=== PATIENT | female | born 1935 | race Caucasian/White ===

== ENCOUNTER 2017-09-04 17:08 | Inpatient (IN) | payer MEDICARE, BC ==
[2017-09-04] MEDS ORDERED: Sodium Chloride 0.9% 10 ML Syringe FLUSH PRN (17:23)
[2017-09-04] MEDS ORDERED: Sodium Chloride 0.9% 2.5 ML Syringe FLUSH PRN (17:23)
--- NOTE | 2017-09-04 17:26 | EDM.PDOC ---
ED HPI GENERAL MEDICAL PROBLEM - General Chief Complaint: Respiratory Problem Stated Complaint: SHORTNESS OF BREATH Time Seen by Provider: 09/04/17 17:19 - History of Present Illness INITIAL COMMENTS - FREE TEXT/NARRATIVE: HISTORY AND PHYSICAL: History of present illness: Patient's an 82-year-old female who presents with term generalized weakness mild shortness of breath who did finish a 10 day course of antibiotics for a clinical pneumonia her last dose of antibiotics was last Tuesday per family she denies vomiting diarrhea she denies chest pain or abdominal pain she is slightly vague regarding her symptoms but is clear that it is generalized weakness with some mild shortness of breath. Review of systems: As per history of present illness and below otherwise all systems reviewed and negative. Past medical history: As per history of present illness and as reviewed below otherwise noncontributory. Surgical history: As per history of present illness and as reviewed below otherwise noncontributory. Social history: No reported history of drug or alcohol abuse. Family history: As per history of present illness and as reviewed below otherwise noncontributory. Physical exam: HEENT: Atraumatic, normocephalic, pupils reactive, negative for conjunctival pallor or scleral icterus, mucous membranes dry, throat clear, neck supple, nontender, trachea midline. Lungs: Slightly coarse diminished, breath sounds equal bilaterally, chest nontender. Heart: S1S2, regular, negative for clicks, rubs, or JVD. Abdomen: Soft, nondistended, nontender. Negative for masses or hepatosplenomegaly. Negative for costovertebral tenderness. Pelvis: Stable nontender. Genitourinary: Deferred. Rectal: Deferred. Extremities: Atraumatic, negative for cords or calf pain. Neurovascular unremarkable. Neuro: Awake, alert, oriented. Cranial nerves II through XII unremarkable. Cerebellum unremarkable. Motor and sensory unremarkable throughout. Exam nonfocal. Diagnostics: CBC CMP ABG troponin PT/INR chest x-ray EKG UA urine culture blood culture 2 influenza screen lactic acid Therapeutics: Saline 500 cc bolus Impression: #1Generalized weakness #2 dehydration Definitive disposition and diagnosis as appropriate pending reevaluation and review of above. - Related Data Allergies Allergy/AdvReac Type Severity Reaction Status Date / Time No Known Allergies Allergy Verified 09/04/17 17:33 Home Meds: Home Meds Simvastatin [Zocor] 40 mg PO BEDTIME 03/19/14 [History] metFORMIN HCl [Metformin HCl ER] 500 mg PO DAILY 03/19/14 [History] Lisinopril 5 mg PO DAILY 05/23/16 [History] Metoprolol Succinate [Toprol XL] 50 mg PO DAILY 05/23/16 [History] Past Medical History HEENT History: Reports: Impaired Vision Cardiovascular History: Reports: High Cholesterol, Hypertension, Stents Respiratory History: Reports: None Gastrointestinal History: Reports: None Genitourinary History: Reports: None 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: Musculoskeletal History: Reports: None Neurological History: Reports: None Psychiatric History: Reports: None Endocrine/Metabolic History: Reports: Diabetes, Type II Hematologic History: Reports: None Immunologic History: Reports: None Oncologic (Cancer) History: Reports: None - Infectious Disease History Infectious Disease History: Reports: Chicken Pox, Measles, Mumps - Past Surgical History Cardiovascular Surgical History: Reports: Coronary Artery Stent, Other (See Below) Social & Family History - Family History Family Medical History: Noncontributory - Tobacco Use Smoking Status *Q: Never Smoker Second Hand Smoke Exposure: No - Alcohol Use Days Per Week of Alcohol Use: 0 - Recreational Drug Use Recreational Drug Use: No - Living Situation & Occupation Living situation: Reports: , with Family Occupation: Retired ED ROS GENERAL - Review of Systems Review Of Systems: ROS reveals no pertinent complaints other than HPI. ED EXAM, GENERAL - Physical Exam Exam: See Below (Dictation) Course - Vital Signs Last Recorded V/S: Last Vital Signs Temp 37.0 C 09/04/17 17:10 Pulse 87 09/04/17 17:10 Resp 20 09/04/17 17:10 BP 184/84 H 09/04/17 17:10 Pulse Ox 96 09/04/17 17:22 - Orders/Labs/Meds Orders: Active Orders 24 hr Category Date Time Status Patient Status [ADT] Stat ADT 09/04/17 18:49 Active Cardiac Monitoring [RC] . DIRECTED Care 09/04/17 17:22 Active EKG 12 Lead [EKG Documentation Completion] [RC] STAT Care 09/04/17 17:15 Active EKG Documentation Completion [RC] STAT Care 09/04/17 17:22 Active Oxygen Therapy, ED [RC] ASDIRECTED Care 09/04/17 17:22 Active Pulse Oximetry [RC] ASDIRECTED Care 09/04/17 17:23 Active Chest 2V [CR] Stat Exams 09/04/17 17:23 Taken CULTURE BLOOD [BC] Stat Lab 09/04/17 17:38 Received CULTURE BLOOD [BC] Stat Lab 09/04/17 17:43 Received CULTURE URINE [RM] Stat Lab 09/04/17 17:23 Ordered INFLUENZA A+B AG SCREEN [RM] Stat Lab 09/04/17 17:56 Ordered UA W/MICROSCOPIC [URIN] Stat Lab 09/04/17 17:23 Ordered Levofloxacin/Dextrose 5%-Water [Levaquin in D5W 750 MG/ Med 09/04/17 18:48 Active 150 ML] 750 mg Premix Bag 1 bag IV ONETIME Sodium Chloride 0.9% [Normal Saline] 500 ml Med 09/04/17 17:30 Active IV STAT Sodium Chloride 0.9% [Saline Flush] Med 09/04/17 17:23 Active 10 ml FLUSH ASDIRECTED PRN Sodium Chloride 0.9% [Saline Flush] Med 09/04/17 17:23 Active 2.5 ml FLUSH ASDIRECTED PRN Blood Culture x2 Reflex Set [OM.PC] Stat Oth 09/04/17 17:23 Ordered Saline Lock Insert [OM.PC] Stat Oth 09/04/17 17:22 Ordered Medication Orders Sodium Chloride (Normal Saline) 500 mls @ 999 mls/hr IV STAT [facility] Last Admin: 09/04/17 17:53 Dose: 999 mls/hr Levofloxacin/Dextrose 750 mg/ (Premix) 150 mls @ 100 mls/hr IV ONETIME ONE Stop: 09/04/17 20:17 Sodium Chloride (Saline Flush) 10 ml FLUSH ASDIRECTED PRN PRN Reason: Keep Vein Open Sodium Chloride (Saline Flush) 2.5 ml FLUSH ASDIRECTED PRN PRN Reason: Keep Vein Open Labs: Laboratory Tests 09/04/17 09/04/17 09/04/17 Range/Units 17:43 17:43 17:43 WBC 7.28 (4.0-11.0) K/uL RBC 4.23 L (4.30-5.90) M/uL Hgb 12.9 (12.0-16.0) g/dL Hct 40.3 (36.0-46.0) % MCV 95.3 (80.0-98.0) fL MCH 30.5 (27.0-32.0) pg MCHC 32.0 (31.0-37.0) g/dL RDW Std Deviation 45.0 (28.0-62.0) fl RDW Coeff of Sukhdeep 13 (11.0-15.0) % Plt Count 529 H (150-400) K/uL MPV 10.60 (7.40-12.00) fL Neut % (Auto) 75.0 (48.0-80.0) % Lymph % (Auto) 16.6 (16.0-40.0) % [place] % (Auto) 7.0 (0.0-15.0) % Eos % (Auto) 1.1 (0.0-7.0) % Baso % (Auto) 0.3 (0.0-1.5) % Neut # (Auto) 5.5 (1.4-5.7) K/uL Lymph # (Auto) 1.2 (0.6-2.4) K/uL [place] # (Auto) 0.5 (0.0-0.8) K/uL Eos # (Auto) 0.1 (0.0-0.7) K/uL Baso # (Auto) 0.0 (0.0-0.1) K/uL Nucleated RBC % 0.0 /100WBC Nucleated RBCs # 0 K/uL INR 1.01 ABG pH (7.35-7.45) ABG pCO2 (35-45) mmHG ABG pO2 (75-100) mmHG ABG HCO3 (22-26) mEq/L ABG Total CO2 ABG Base Excess (-2.0-2.0) Lactate (0.20-2.00) mmol/L Sodium 143 (136-145) mmol/L Potassium 3.8 (3.5-5.1) mmol/L Chloride 107 (98-107) mmol/L Carbon Dioxide 26.9 (21.0-32.0) mmol/L BUN 7 (7.0-18.0) mg/dL Creatinine 1.1 H (0.6-1.0) mg/dL Est Cr Clr Drug Dosing 33.03 mL/min Estimated GFR (MDRD) 47.4 ml/min Glucose 109 H (74-106) mg/dL Calcium 8.7 (8.5-10.1) mg/dL Total Bilirubin 0.2 (0.2-1.0) mg/dL AST 22 (15-37) IU/L ALT 36 (14-63) IU/L Alkaline Phosphatase 139 H (46-116) U/L Troponin I < 0.050 (0.000-0.056) ng/mL B-Natriuretic Peptide (<100) PG/ML Total Protein 6.0 L (6.4-8.2) g/dL Albumin 2.7 L (3.4-5.0) g/dL Globulin 3.3 (2.0-3.5) g/dL Albumin/Globulin Ratio 0.8 L (1.3-2.8) 09/04/17 09/04/17 Range/Units 17:43 17:52 WBC (4.0-11.0) K/uL RBC (4.30-5.90) M/uL Hgb (12.0-16.0) g/dL Hct (36.0-46.0) % MCV (80.0-98.0) fL MCH (27.0-32.0) pg MCHC (31.0-37.0) g/dL RDW Std Deviation (28.0-62.0) fl RDW Coeff of Sukhdeep (11.0-15.0) % Plt Count (150-400) K/uL MPV (7.40-12.00) fL Neut % (Auto) (48.0-80.0) % Lymph % (Auto) (16.0-40.0) % [place] % (Auto) (0.0-15.0) % Eos % (Auto) (0.0-7.0) % Baso % (Auto) (0.0-1.5) % Neut # (Auto) (1.4-5.7) K/uL Lymph # (Auto) (0.6-2.4) K/uL [place] # (Auto) (0.0-0.8) K/uL Eos # (Auto) (0.0-0.7) K/uL Baso # (Auto) (0.0-0.1) K/uL Nucleated RBC % /100WBC Nucleated RBCs # K/uL INR ABG pH 7.467 H (7.35-7.45) ABG pCO2 38 (35-45) mmHG ABG pO2 66 L (75-100) mmHG ABG HCO3 27 H (22-26) mEq/L ABG Total CO2 24.7 ABG Base Excess 3.6 H (-2.0-2.0) Lactate 1.0 (0.20-2.00) mmol/L Sodium (136-145) mmol/L Potassium (3.5-5.1) mmol/L Chloride (98-107) mmol/L Carbon Dioxide (21.0-32.0) mmol/L BUN (7.0-18.0) mg/dL Creatinine (0.6-1.0) mg/dL Est Cr Clr Drug Dosing mL/min Estimated GFR (MDRD) ml/min Glucose (74-106) mg/dL Calcium (8.5-10.1) mg/dL Total Bilirubin (0.2-1.0) mg/dL AST (15-37) IU/L ALT (14-63) IU/L Alkaline Phosphatase (46-116) U/L Troponin I (0.000-0.056) ng/mL B-Natriuretic Peptide 174 H (<100) PG/ML Total Protein (6.4-8.2) g/dL Albumin (3.4-5.0) g/dL Globulin (2.0-3.5) g/dL Albumin/Globulin Ratio (1.3-2.8) Meds: Medications Generic Name Dose Route Start Last Admin Trade Name Freq PRN Reason Stop Dose Admin Sodium Chloride 500 mls @ 999 mls/hr 09/04/17 17:30 09/04/17 17:53 Normal Saline IV 999 mls/hr STAT AMINAH Administration Levofloxacin/Dextrose 750 mg/ 150 mls @ 100 mls/hr 09/04/17 18:48 Premix IV 09/04/17 20:17 ONETIME ONE Sodium Chloride 10 ml 09/04/17 17:23 Saline Flush FLUSH ASDIRECTED PRN Keep Vein Open Sodium Chloride 2.5 ml 09/04/17 17:23 Saline Flush FLUSH ASDIRECTED PRN Keep Vein Open Departure - Departure Time of Disposition: 18:57 Disposition: Admitted As Inpatient 65 Condition: Good Clinical Impression: Pneumonia, Weakness - Discharge Information Referrals: Jorge Tyson MD [Primary Care Provider] - Forms: ED Department Discharge - My Orders Last 24 Hours: My Active Orders 09/04/17 17:15 EKG 12 Lead [EKG Documentation Completion] [RC] STAT 09/04/17 17:22 Cardiac Monitoring [RC] . DIRECTED EKG Documentation Completion [RC] STAT Oxygen Therapy, ED [RC] ASDIRECTED Saline Lock Insert [OM.PC] Stat 09/04/17 17:23 Pulse Oximetry [RC] ASDIRECTED Chest 2V [CR] Stat CULTURE URINE [RM] Stat UA W/MICROSCOPIC [URIN] Stat Sodium Chloride 0.9% [Saline Flush] 10 ml FLUSH ASDIRECTED PRN Sodium Chloride 0.9% [Saline Flush] 2.5 ml FLUSH ASDIRECTED PRN Blood Culture x2 Reflex Set [OM.PC] Stat 09/04/17 17:30 Sodium Chloride 0.9% [Normal Saline] 500 ml IV STAT 09/04/17 17:38 CULTURE BLOOD [BC] Stat 09/04/17 17:43 CULTURE BLOOD [BC] Stat 09/04/17 17:56 INFLUENZA A+B AG SCREEN [RM] Stat 09/04/17 18:48 Levofloxacin/Dextrose 5%-Water [Levaquin in D5W 750 MG/150 ML] 750 mg Premix Bag 1 bag IV ONETIME 09/04/17 18:49 Patient Status [ADT] Stat - Assessment/Plan Last 24 Hours: My Active Orders 09/04/17 17:15 EKG 12 Lead [EKG Documentation Completion] [RC] STAT 09/04/17 17:22 Cardiac Monitoring [RC] . DIRECTED EKG Documentation Completion [RC] STAT Oxygen Therapy, ED [RC] ASDIRECTED Saline Lock Insert [OM.PC] Stat 09/04/17 17:23 Pulse Oximetry [RC] ASDIRECTED Chest 2V [CR] Stat CULTURE URINE [RM] Stat UA W/MICROSCOPIC [URIN] Stat Sodium Chloride 0.9% [Saline Flush] 10 ml FLUSH ASDIRECTED PRN Sodium Chloride 0.9% [Saline Flush] 2.5 ml FLUSH ASDIRECTED PRN Blood Culture x2 Reflex Set [OM.PC] Stat 09/04/17 17:30 Sodium Chloride 0.9% [Normal Saline] 500 ml IV STAT 09/04/17 17:38 CULTURE BLOOD [BC] Stat 09/04/17 17:43 CULTURE BLOOD [BC] Stat 09/04/17 17:56 INFLUENZA A+B AG SCREEN [RM] Stat 09/04/17 18:48 Levofloxacin/Dextrose 5%-Water [Levaquin in D5W 750 MG/150 ML] 750 mg Premix Bag 1 bag IV ONETIME 09/04/17 18:49 Patient Status [ADT] Stat
[2017-09-04] MEDS ORDERED: Sodium Chloride 0.9% 500 ML IV SCH (17:30)
[2017-09-04 18:26] LABS: CHLORIDE,CL 107 mmol/L (98-107); SODIUM,NA 143 mmol/L (136-145)
[2017-09-04] MEDS ORDERED: Levofloxacin/Dextrose 5%-Water 750 MG in Premix Bag 1 BAG IV ONE (18:48)
--- NOTE | 2017-09-04 22:05 | PCM.HP ---
H&P History of Present Illness - General Admit Problem/Dx: Admission Diagnosis/Problem Admission Diagnosis/Problem Pneumonia - History of Present Illness Initial Comments - Free Text/Narative: 82 yo female who was treated with cefdinir for ten days for a pneumonia. She presents to the ED today with complaints of generalized weakness. She reports cough but no fevers, chills, or chest pain. - Related Data Allergies/Adverse Reactions: Allergies Allergy/AdvReac Type Severity Reaction Status Date / Time No Known Allergies Allergy Verified 09/04/17 17:33 Home Medications: Home Meds Simvastatin [Zocor] 40 mg PO BEDTIME 03/19/14 [History] metFORMIN HCl [Metformin HCl ER] 500 mg PO DAILY 03/19/14 [History] Lisinopril 5 mg PO DAILY 05/23/16 [History] Metoprolol Succinate [Toprol XL] 50 mg PO DAILY 05/23/16 [History] Past Medical History HEENT History: Reports: Impaired Vision Cardiovascular History: Reports: High Cholesterol, Hypertension, Stents Respiratory History: Reports: None Gastrointestinal History: Reports: None Genitourinary History: Reports: None 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: Musculoskeletal History: Reports: None Neurological History: Reports: None Psychiatric History: Reports: None Endocrine/Metabolic History: Reports: Diabetes, Type II Hematologic History: Reports: None Immunologic History: Reports: None Oncologic (Cancer) History: Reports: None - Infectious Disease History Infectious Disease History: Reports: Chicken Pox, Measles, Mumps - Past Surgical History Cardiovascular Surgical History: Reports: Coronary Artery Stent, Other (See Below) Dermatological Surgical History: Reports: None Social & Family History - Family History Family Medical History: Noncontributory - Tobacco Use Smoking Status *Q: Never Smoker Second Hand Smoke Exposure: No - Caffeine Use Caffeine Use: Reports: Coffee - Alcohol Use Days Per Week of Alcohol Use: 0 - Recreational Drug Use Recreational Drug Use: No - Living Situation & Occupation Living situation: Reports: , with Family Occupation: Retired H&P Review of Systems - Review of Systems: Review Of Systems: ROS reveals no pertinent complaints other than HPI. Exam - Exam Exam: See Below - Vital Signs Vital Signs: Last Vital Signs Temp 37.0 C 09/04/17 17:10 Pulse 75 09/04/17 19:18 Resp 17 09/04/17 19:18 BP 181/88 H 09/04/17 19:18 Pulse Ox 95 09/04/17 19:18 Weight: 54.975 kg - Exam General: Alert, Oriented HEENT: Mucosa Moist & [place] Lungs: Clear to Auscultation, Normal Respiratory Effort Cardiovascular: Regular Rate, Regular Rhythm GI/Abdominal Exam: Soft, Non-Tender Extremities: Non-Tender, No Pedal Edema Skin: Warm, Dry, Intact Neurological: No: Focal Deficit - Patient Data Lab Results Last 24 hrs: Laboratory Results - last 24 hr 09/04/17 09/04/17 09/04/17 Range/Units 17:43 17:43 17:43 WBC 7.28 (4.0-11.0) K/uL RBC 4.23 L (4.30-5.90) M/uL Hgb 12.9 (12.0-16.0) g/dL Hct 40.3 (36.0-46.0) % MCV 95.3 (80.0-98.0) fL MCH 30.5 (27.0-32.0) pg MCHC 32.0 (31.0-37.0) g/dL RDW Std Deviation 45.0 (28.0-62.0) fl RDW Coeff of Sukhdeep 13 (11.0-15.0) % Plt Count 529 H (150-400) K/uL MPV 10.60 (7.40-12.00) fL Neut % (Auto) 75.0 (48.0-80.0) % Lymph % (Auto) 16.6 (16.0-40.0) % [place] % (Auto) 7.0 (0.0-15.0) % Eos % (Auto) 1.1 (0.0-7.0) % Baso % (Auto) 0.3 (0.0-1.5) % Neut # (Auto) 5.5 (1.4-5.7) K/uL Lymph # (Auto) 1.2 (0.6-2.4) K/uL [place] # (Auto) 0.5 (0.0-0.8) K/uL Eos # (Auto) 0.1 (0.0-0.7) K/uL Baso # (Auto) 0.0 (0.0-0.1) K/uL Nucleated RBC % 0.0 /100WBC Nucleated RBCs # 0 K/uL INR 1.01 ABG pH (7.35-7.45) ABG pCO2 (35-45) mmHG ABG pO2 (75-100) mmHG ABG HCO3 (22-26) mEq/L ABG Total CO2 ABG Base Excess (-2.0-2.0) Lactate (0.20-2.00) mmol/L Sodium 143 (136-145) mmol/L Potassium 3.8 (3.5-5.1) mmol/L Chloride 107 (98-107) mmol/L Carbon Dioxide 26.9 (21.0-32.0) mmol/L BUN 7 (7.0-18.0) mg/dL Creatinine 1.1 H (0.6-1.0) mg/dL Est Cr Clr Drug Dosing 33.03 mL/min Estimated GFR (MDRD) 47.4 ml/min Glucose 109 H (74-106) mg/dL Calcium 8.7 (8.5-10.1) mg/dL Total Bilirubin 0.2 (0.2-1.0) mg/dL AST 22 (15-37) IU/L ALT 36 (14-63) IU/L Alkaline Phosphatase 139 H (46-116) U/L Troponin I < 0.050 (0.000-0.056) ng/mL B-Natriuretic Peptide (<100) PG/ML Total Protein 6.0 L (6.4-8.2) g/dL Albumin 2.7 L (3.4-5.0) g/dL Globulin 3.3 (2.0-3.5) g/dL Albumin/Globulin Ratio 0.8 L (1.3-2.8) Urine Color Urine Appearance Urine pH (5.0-8.0) Ur Specific [place] (1.001-1.035) Urine Protein (NEGATIVE) mg/dL Urine Glucose (UA) (NEGATIVE) mg/dL Urine Ketones (NEGATIVE) mg/dL Urine Occult Blood (NEGATIVE) Urine Nitrite (NEGATIVE) Urine Bilirubin (NEGATIVE) Urine Urobilinogen (<2.0) EU/dL Ur Leukocyte Esterase (NEGATIVE) 09/04/17 09/04/17 09/04/17 Range/Units 17:43 17:52 18:52 WBC (4.0-11.0) K/uL RBC (4.30-5.90) M/uL Hgb (12.0-16.0) g/dL Hct (36.0-46.0) % MCV (80.0-98.0) fL MCH (27.0-32.0) pg MCHC (31.0-37.0) g/dL RDW Std Deviation (28.0-62.0) fl RDW Coeff of Sukhdeep (11.0-15.0) % Plt Count (150-400) K/uL MPV (7.40-12.00) fL Neut % (Auto) (48.0-80.0) % Lymph % (Auto) (16.0-40.0) % [place] % (Auto) (0.0-15.0) % Eos % (Auto) (0.0-7.0) % Baso % (Auto) (0.0-1.5) % Neut # (Auto) (1.4-5.7) K/uL Lymph # (Auto) (0.6-2.4) K/uL [place] # (Auto) (0.0-0.8) K/uL Eos # (Auto) (0.0-0.7) K/uL Baso # (Auto) (0.0-0.1) K/uL Nucleated RBC % /100WBC Nucleated RBCs # K/uL INR ABG pH 7.467 H (7.35-7.45) ABG pCO2 38 (35-45) mmHG ABG pO2 66 L (75-100) mmHG ABG HCO3 27 H (22-26) mEq/L ABG Total CO2 24.7 ABG Base Excess 3.6 H (-2.0-2.0) Lactate 1.0 (0.20-2.00) mmol/L Sodium (136-145) mmol/L Potassium (3.5-5.1) mmol/L Chloride (98-107) mmol/L Carbon Dioxide (21.0-32.0) mmol/L BUN (7.0-18.0) mg/dL Creatinine (0.6-1.0) mg/dL Est Cr Clr Drug Dosing mL/min Estimated GFR (MDRD) ml/min Glucose (74-106) mg/dL Calcium (8.5-10.1) mg/dL Total Bilirubin (0.2-1.0) mg/dL AST (15-37) IU/L ALT (14-63) IU/L Alkaline Phosphatase (46-116) U/L Troponin I (0.000-0.056) ng/mL B-Natriuretic Peptide 174 H (<100) PG/ML Total Protein (6.4-8.2) g/dL Albumin (3.4-5.0) g/dL Globulin (2.0-3.5) g/dL Albumin/Globulin Ratio (1.3-2.8) Urine Color YELLOW Urine Appearance HAZY Urine pH 6.0 (5.0-8.0) Ur Specific [place] <= 1.005 (1.001-1.035) Urine Protein NEGATIVE (NEGATIVE) mg/dL Urine Glucose (UA) NEGATIVE (NEGATIVE) mg/dL Urine Ketones NEGATIVE (NEGATIVE) mg/dL Urine Occult Blood NEGATIVE (NEGATIVE) Urine Nitrite NEGATIVE (NEGATIVE) Urine Bilirubin NEGATIVE (NEGATIVE) Urine Urobilinogen 0.2 (<2.0) EU/dL Ur Leukocyte Esterase MODERATE (NEGATIVE) Result Diagrams: 09/05/17 05:44 09/05/17 05:44 Jose Results Last 24 hrs: Microbiology 09/04/17 17:56 Influenza Type A Antigen Screen - Final Nasopharyngeal Swab NEGATIVE INFLUENZA A VIRUS AG Influenza Type B Antigen Screen - Final NEGATIVE INFLUENZA B VIRUS AG Problem List Initiated/Reviewed/Updated: Yes Orders Last 24hrs: Active Orders 24 hr Category Date Time Status Patient Status [ADT] Stat ADT 09/04/17 18:49 Active Cardiac Monitoring [RC] . DIRECTED Care 09/04/17 17:22 Active EKG 12 Lead [EKG Documentation Completion] [RC] STAT Care 09/04/17 17:15 Active EKG Documentation Completion [RC] STAT Care 09/04/17 17:22 Active Oxygen Therapy, ED [RC] ASDIRECTED Care 09/04/17 17:22 Active Pulse Oximetry [RC] ASDIRECTED Care 09/04/17 17:23 Active Chest 2V [CR] Stat Exams 09/04/17 17:23 Taken CULTURE BLOOD [BC] Stat Lab 09/04/17 17:38 Received CULTURE BLOOD [BC] Stat Lab 09/04/17 17:43 Received CULTURE URINE [RM] Stat Lab 09/04/17 18:52 Ordered INFLUENZA A+B AG SCREEN [RM] Stat Lab 09/04/17 17:56 Ordered UA W/MICROSCOPIC [URIN] Stat Lab 09/04/17 18:52 Ordered Sodium Chloride 0.9% [Normal Saline] 500 ml Med 09/04/17 17:30 Active IV STAT Sodium Chloride 0.9% [Saline Flush] Med 09/04/17 17:23 Active 10 ml FLUSH ASDIRECTED PRN Sodium Chloride 0.9% [Saline Flush] Med 09/04/17 17:23 Active 2.5 ml FLUSH ASDIRECTED PRN Blood Culture x2 Reflex Set [OM.PC] Stat Oth 09/04/17 17:23 Ordered Saline Lock Insert [OM.PC] Stat Oth 09/04/17 17:22 Ordered Medication Orders Sodium Chloride (Normal Saline) 500 mls @ 999 mls/hr IV STAT AMINAH Last Admin: 09/04/17 17:53 Dose: 999 mls/hr Sodium Chloride (Saline Flush) 10 ml FLUSH ASDIRECTED PRN PRN Reason: Keep Vein Open Sodium Chloride (Saline Flush) 2.5 ml FLUSH ASDIRECTED PRN PRN Reason: Keep Vein Open Assessment/Plan Comment:: 82 yo female admitted with pneumonia. We will treat with Levaquin
--- NOTE | 2017-09-05 09:03 | PCM.PN ---
- Review of Systems Systems Review Comment:: feeling better, feels unsteady on her feet. - Patient Data Vitals - Most Recent: Last Vital Signs Temp 36.5 C 09/05/17 08:00 Pulse 78 09/05/17 08:00 Resp 18 09/05/17 08:00 BP 148/73 H 09/05/17 08:00 Pulse Ox 92 L 09/05/17 08:00 Weight - Most Recent: 54.975 kg I&O - Last 24 Hours: Intake & Output 09/04/17 09/05/17 09/05/17 22:59 06:59 14:59 Intake Total 520 Output Total 1400 Balance -880 Lab Results Last 24 Hours: Laboratory Results - last 24 hr 09/04/17 09/04/17 09/04/17 Range/Units 17:43 17:43 17:43 WBC 7.28 (4.0-11.0) K/uL RBC 4.23 L (4.30-5.90) M/uL Hgb 12.9 (12.0-16.0) g/dL Hct 40.3 (36.0-46.0) % MCV 95.3 (80.0-98.0) fL MCH 30.5 (27.0-32.0) pg MCHC 32.0 (31.0-37.0) g/dL RDW Std Deviation 45.0 (28.0-62.0) fl RDW Coeff of Sukhdeep 13 (11.0-15.0) % Plt Count 529 H (150-400) K/uL MPV 10.60 (7.40-12.00) fL Neut % (Auto) 75.0 (48.0-80.0) % Lymph % (Auto) 16.6 (16.0-40.0) % [place] % (Auto) 7.0 (0.0-15.0) % Eos % (Auto) 1.1 (0.0-7.0) % Baso % (Auto) 0.3 (0.0-1.5) % Neut # (Auto) 5.5 (1.4-5.7) K/uL Lymph # (Auto) 1.2 (0.6-2.4) K/uL [place] # (Auto) 0.5 (0.0-0.8) K/uL Eos # (Auto) 0.1 (0.0-0.7) K/uL Baso # (Auto) 0.0 (0.0-0.1) K/uL Nucleated RBC % 0.0 /100WBC Nucleated RBCs # 0 K/uL INR 1.01 ABG pH (7.35-7.45) ABG pCO2 (35-45) mmHG ABG pO2 (75-100) mmHG ABG HCO3 (22-26) mEq/L ABG Total CO2 ABG Base Excess (-2.0-2.0) Lactate (0.20-2.00) mmol/L Sodium 143 (136-145) mmol/L Potassium 3.8 (3.5-5.1) mmol/L Chloride 107 (98-107) mmol/L Carbon Dioxide 26.9 (21.0-32.0) mmol/L BUN 7 (7.0-18.0) mg/dL Creatinine 1.1 H (0.6-1.0) mg/dL Est Cr Clr Drug Dosing 33.03 mL/min Estimated GFR (MDRD) 47.4 ml/min Glucose 109 H (74-106) mg/dL Calcium 8.7 (8.5-10.1) mg/dL Total Bilirubin 0.2 (0.2-1.0) mg/dL AST 22 (15-37) IU/L ALT 36 (14-63) IU/L Alkaline Phosphatase 139 H (46-116) U/L Troponin I < 0.050 (0.000-0.056) ng/mL B-Natriuretic Peptide (<100) PG/ML Total Protein 6.0 L (6.4-8.2) g/dL Albumin 2.7 L (3.4-5.0) g/dL Globulin 3.3 (2.0-3.5) g/dL Albumin/Globulin Ratio 0.8 L (1.3-2.8) Urine Color Urine Appearance Urine pH (5.0-8.0) Ur Specific [place] (1.001-1.035) Urine Protein (NEGATIVE) mg/dL Urine Glucose (UA) (NEGATIVE) mg/dL Urine Ketones (NEGATIVE) mg/dL Urine Occult Blood (NEGATIVE) Urine Nitrite (NEGATIVE) Urine Bilirubin (NEGATIVE) Urine Urobilinogen (<2.0) EU/dL Ur Leukocyte Esterase (NEGATIVE) 09/04/17 09/04/17 09/04/17 Range/Units 17:43 17:52 18:52 WBC (4.0-11.0) K/uL RBC (4.30-5.90) M/uL Hgb (12.0-16.0) g/dL Hct (36.0-46.0) % MCV (80.0-98.0) fL MCH (27.0-32.0) pg MCHC (31.0-37.0) g/dL RDW Std Deviation (28.0-62.0) fl RDW Coeff of Sukhdeep (11.0-15.0) % Plt Count (150-400) K/uL MPV (7.40-12.00) fL Neut % (Auto) (48.0-80.0) % Lymph % (Auto) (16.0-40.0) % [place] % (Auto) (0.0-15.0) % Eos % (Auto) (0.0-7.0) % Baso % (Auto) (0.0-1.5) % Neut # (Auto) (1.4-5.7) K/uL Lymph # (Auto) (0.6-2.4) K/uL [place] # (Auto) (0.0-0.8) K/uL Eos # (Auto) (0.0-0.7) K/uL Baso # (Auto) (0.0-0.1) K/uL Nucleated RBC % /100WBC Nucleated RBCs # K/uL INR ABG pH 7.467 H (7.35-7.45) ABG pCO2 38 (35-45) mmHG ABG pO2 66 L (75-100) mmHG ABG HCO3 27 H (22-26) mEq/L ABG Total CO2 24.7 ABG Base Excess 3.6 H (-2.0-2.0) Lactate 1.0 (0.20-2.00) mmol/L Sodium (136-145) mmol/L Potassium (3.5-5.1) mmol/L Chloride (98-107) mmol/L Carbon Dioxide (21.0-32.0) mmol/L BUN (7.0-18.0) mg/dL Creatinine (0.6-1.0) mg/dL Est Cr Clr Drug Dosing mL/min Estimated GFR (MDRD) ml/min Glucose (74-106) mg/dL Calcium (8.5-10.1) mg/dL Total Bilirubin (0.2-1.0) mg/dL AST (15-37) IU/L ALT (14-63) IU/L Alkaline Phosphatase (46-116) U/L Troponin I (0.000-0.056) ng/mL B-Natriuretic Peptide 174 H (<100) PG/ML Total Protein (6.4-8.2) g/dL Albumin (3.4-5.0) g/dL Globulin (2.0-3.5) g/dL Albumin/Globulin Ratio (1.3-2.8) Urine Color YELLOW Urine Appearance HAZY Urine pH 6.0 (5.0-8.0) Ur Specific [place] <= 1.005 (1.001-1.035) Urine Protein NEGATIVE (NEGATIVE) mg/dL Urine Glucose (UA) NEGATIVE (NEGATIVE) mg/dL Urine Ketones NEGATIVE (NEGATIVE) mg/dL Urine Occult Blood NEGATIVE (NEGATIVE) Urine Nitrite NEGATIVE (NEGATIVE) Urine Bilirubin NEGATIVE (NEGATIVE) Urine Urobilinogen 0.2 (<2.0) EU/dL Ur Leukocyte Esterase MODERATE (NEGATIVE) 09/05/17 09/05/17 Range/Units 05:44 05:44 WBC 7.77 (4.0-11.0) K/uL RBC 4.09 L (4.30-5.90) M/uL Hgb 12.6 (12.0-16.0) g/dL Hct 39.1 (36.0-46.0) % MCV 95.6 (80.0-98.0) fL MCH 30.8 (27.0-32.0) pg MCHC 32.2 (31.0-37.0) g/dL RDW Std Deviation 44.6 (28.0-62.0) fl RDW Coeff of Sukhdeep 13 (11.0-15.0) % Plt Count 465 H (150-400) K/uL MPV 10.60 (7.40-12.00) fL Neut % (Auto) 76.2 (48.0-80.0) % Lymph % (Auto) 15.7 L (16.0-40.0) % [place] % (Auto) 6.7 (0.0-15.0) % Eos % (Auto) 0.9 (0.0-7.0) % Baso % (Auto) 0.5 (0.0-1.5) % Neut # (Auto) 5.9 H (1.4-5.7) K/uL Lymph # (Auto) 1.2 (0.6-2.4) K/uL [place] # (Auto) 0.5 (0.0-0.8) K/uL Eos # (Auto) 0.1 (0.0-0.7) K/uL Baso # (Auto) 0.0 (0.0-0.1) K/uL Nucleated RBC % 0.0 /100WBC Nucleated RBCs # 0 K/uL INR ABG pH (7.35-7.45) ABG pCO2 (35-45) mmHG ABG pO2 (75-100) mmHG ABG HCO3 (22-26) mEq/L ABG Total CO2 ABG Base Excess (-2.0-2.0) Lactate (0.20-2.00) mmol/L Sodium 145 (136-145) mmol/L Potassium 4.1 (3.5-5.1) mmol/L Chloride 109 H (98-107) mmol/L Carbon Dioxide 28.6 (21.0-32.0) mmol/L BUN 6 L (7.0-18.0) mg/dL Creatinine 1.1 H (0.6-1.0) mg/dL Est Cr Clr Drug Dosing 33.46 mL/min Estimated GFR (MDRD) 47.4 ml/min Glucose 109 H (74-106) mg/dL Calcium 8.9 (8.5-10.1) mg/dL Total Bilirubin (0.2-1.0) mg/dL AST (15-37) IU/L ALT (14-63) IU/L Alkaline Phosphatase (46-116) U/L Troponin I (0.000-0.056) ng/mL B-Natriuretic Peptide (<100) PG/ML Total Protein (6.4-8.2) g/dL Albumin (3.4-5.0) g/dL Globulin (2.0-3.5) g/dL Albumin/Globulin Ratio (1.3-2.8) Urine Color Urine Appearance Urine pH (5.0-8.0) Ur Specific [place] (1.001-1.035) Urine Protein (NEGATIVE) mg/dL Urine Glucose (UA) (NEGATIVE) mg/dL Urine Ketones (NEGATIVE) mg/dL Urine Occult Blood (NEGATIVE) Urine Nitrite (NEGATIVE) Urine Bilirubin (NEGATIVE) Urine Urobilinogen (<2.0) EU/dL Ur Leukocyte Esterase (NEGATIVE) Jose Results Last 24 Hours: Microbiology 09/04/17 17:56 Influenza Type A Antigen Screen - Final Nasopharyngeal Swab NEGATIVE INFLUENZA A VIRUS AG Influenza Type B Antigen Screen - Final NEGATIVE INFLUENZA B VIRUS AG Med Orders - Current: Current Medications Heparin Sodium (Porcine) (Heparin Sodium) 5,000 units SUBCUT Q12HR [facility] Sodium Chloride (Normal Saline) 500 mls @ 999 mls/hr IV STAT [facility] Last Admin: 09/04/17 17:53 Dose: 999 mls/hr Levofloxacin/Dextrose 750 mg/ (Premix) 150 mls @ 100 mls/hr IV Q48H [facility] Sodium Chloride (Saline Flush) 10 ml FLUSH ASDIRECTED PRN PRN Reason: Keep Vein Open Sodium Chloride (Saline Flush) 2.5 ml FLUSH ASDIRECTED PRN PRN Reason: Keep Vein Open Discontinued Medications Levofloxacin/Dextrose 750 mg/ (Premix) 150 mls @ 100 mls/hr IV ONETIME ONE Stop: 09/04/17 20:17 Last Admin: 09/04/17 19:15 Dose: 100 mls/hr - Exam General: Alert, Oriented Lungs: Clear to Auscultation, Normal Respiratory Effort Cardiovascular: Regular Rate, Regular Rhythm GI/Abdominal Exam: Normal Bowel Sounds, Soft, Non-Tender Extremities: Non-Tender Skin: Warm, Dry, Intact - Problem List Review Problem List Initiated/Reviewed/Updated: Yes - My Orders Last 24 Hours: My Active Orders 09/04/17 22:06 CULTURE SPUTUM + SMEAR [RM] Routine 09/05/17 21:00 Heparin Sodium 5,000 units SUBCUT Q12HR 09/05/17 Breakfast [employer] Diet [DIET] 09/06/17 05:11 BASIC METABOLIC PANEL,BMP [CHEM] AM CBC WITH AUTO DIFF [HEME] AM 09/06/17 18:00 Levofloxacin/Dextrose 5%-Water [Levaquin in D5W 750 MG/150 ML] 750 mg Premix Bag 1 bag IV Q48H 09/07/17 05:11 BASIC METABOLIC PANEL,BMP [CHEM] AM CBC WITH AUTO DIFF [HEME] AM - Plan Plan:: 82 yo female admitted with pneumonia. will continue Levaquin, patient feels unsteady on feet and would like to stay another day.
--- NOTE | 2017-09-05 13:56 | CR ---
EXAM DATE: 09/04/17 PATIENT'S AGE: 82 Patient: EMIL DAVISON Facility: [place], [place] Site . Site : [id number] Study: XRay Chest [id number] 6:12:49 PM Ordering Physician: Girish Matta Final Report: INDICATION: Shortness of breath. History of pneumonia. COMPARISON: 26 October 2015. FINDINGS: Two views. Hazy and patchy airspace opacity periphery of the right upper lobe is new. Left lung is clear. Pulmonary vascularity cardiomediastinal silhouette are normal. No pneumothorax or effusion. IMPRESSION: Right upper lobe pneumonia. Followup to imaging to resolution recommended. Dictated by Lasha Carty MD @ Sep 04 2017 6:28PM (Electronic Signature) Report Signed by Proxy. PAYAM
[2017-09-05] MEDS: Insulin Aspart 100 Units/ML 3 ML Pen SUBCUT SCH (17:40)
[2017-09-05] MEDS: Heparin Sodium 5,000 Units/ML Vial SUBCUT SCH (20:57)
[2017-09-06] MEDS: Insulin Aspart 100 Units/ML 3 ML Pen SUBCUT SCH (06:44)
[2017-09-06] MEDS: Heparin Sodium 5,000 Units/ML Vial SUBCUT SCH (08:23)
--- NOTE | 2017-09-06 09:19 | PCM.DCSUM1 ---
Discharge Summary - Hospital Course Brief History: This 82 year old female with pmh of HTN, dyslipidemia and Type II DM presented to the ED with complaints of generalized weakness. She recently was treated with cefdinir for ten days for a pneumonia from her PCP. She presents to the ED today with complaints of generalized weakness. She reports cough but no fevers, chills, or chest pain. - Discharge Data Discharge Date: 09/06/17 Discharge Disposition: Home, W Home Health Agency 06 Condition: Good - Discharge Diagnosis/Problem(s) (1) Pneumonia SNOMED Code(s): 953907934 ICD Code: J18.9 - PNEUMONIA, UNSPECIFIED ORGANISM Status: Acute Current Visit: Yes (2) Weakness SNOMED Code(s): 78327861 ICD Code: R53.1 - WEAKNESS Status: Acute Current Visit: Yes (3) Hypertension SNOMED Code(s): 05783409 ICD Code: I10 - ESSENTIAL (PRIMARY) HYPERTENSION Status: Acute Current Visit: No Qualifiers: Hypertension type: essential hypertension Qualified Code(s): I10 - Essential (primary) hypertension (4) Diabetes mellitus SNOMED Code(s): 01809978 ICD Code: E11.9 - TYPE 2 DIABETES MELLITUS WITHOUT COMPLICATIONS Status: Chronic Priority: Medium Current Visit: No Qualifiers: Diabetes mellitus type: type 2 Diabetes mellitus halfway insulin use: without watermelon inspector use Diabetes mellitus complication status: without complication Qualified Code(s): E11.9 - Type 2 diabetes mellitus without complications - Patient Instructions Diet: Heart Healthy Diet, Diabetic Diet Activity: As Tolerated, No Strenuous Activities Showering/Bathing: May Shower Notify Provider of: Fever, Increased Pain, Swelling and Redness, Drainage, Nausea and/or Vomiting - Discharge Plan Prescriptions/Med Rec: Levofloxacin [Levaquin] 750 mg PO Q48H #2 tab Home Medications: Home Meds Simvastatin [Zocor] 40 mg PO BEDTIME 03/19/14 [History] metFORMIN HCl [Metformin HCl ER] 500 mg PO DAILY 03/19/14 [History] Lisinopril 5 mg PO DAILY 05/23/16 [History] Metoprolol Succinate [Toprol XL] 50 mg PO DAILY 05/23/16 [History] Levofloxacin [Levaquin] 750 mg PO Q48H #2 tab 09/06/17 [Rx] Patient Handouts: Levofloxacin tablets, Community-Acquired Pneumonia, Adult, [id number] Referrals: [facility] [Outside] Jorge Tyson MD [Primary Care Provider] - 09/19/17 3:00 pm - Discharge Summary/Plan Comment DC Time >30 min.: No Discharge Summary/Plan Comment: Discharge Diagnoses: Pneumonia Generalized weakness Deconditioning HTN Dyslipidemia Dm type II Naomi was admitted and treated with Levaquin for CXR findings of RUL pneumonia. She had no leukocytosis or fevers and BC negative. She was monitored and ambulated with staff. She is feeling better today and able to ambulate well without assistance in her room. She will be discharged home today. She will be discharged with home health, she is home bound due to the inability to leave her house with out assistance of her children. She is in need of long-term assistance to help with medication management due to addition of antibiotic and setting up and understanding home medication regimen. She is also in need of PT to evaluate and treat for deconditioning due to recently illness and hospitalization. Dr Tyson, her PCP, will follow through on Home Health care plan. She will be continued on Levaquin 750 mg Q48 hrs x 2 more doses, for total of 5 day course. She is to return to ED or clinic if concerns should arise and follow up with PCP in 1 week. - General Info Date of Service: 09/06/17 Admission Dx/Problem (Free Text: Admission Diagnosis/Problem Admission Diagnosis/Problem Pneumonia Subjective Update: Sitting up in bed finishing breakfast, no complaints this morning. No chest pain or SOB. Generalized weakness is improving. No concerns. Functional Status: Reports: Pain Controlled, Tolerating Diet, Ambulating, Urinating - Review of Systems General: Reports: No Symptoms. Denies: Fever, Weakness, Fatigue HEENT: Reports: No Symptoms. Denies: Headaches, Sore Throat, Visual Changes Pulmonary: Reports: No Symptoms. Denies: Shortness of Breath Cardiovascular: Reports: No Symptoms. Denies: Chest Pain Gastrointestinal: Reports: No Symptoms. Denies: Abdominal Pain, Nausea, Vomiting Genitourinary: Reports: No Symptoms. Denies: Dysuria, Frequency, Burning Musculoskeletal: Reports: No Symptoms Skin: Reports: No Symptoms Neurological: Reports: No Symptoms Psychiatric: Reports: No Symptoms - Patient Data Vitals - Most Recent: Last Vital Signs Temp 97.7 F 09/06/17 07:51 Pulse 92 09/06/17 07:51 Resp 18 09/06/17 07:51 BP 139/40 L 09/06/17 07:51 Pulse Ox 94 L 09/06/17 07:51 Weight - Most Recent: 54.975 kg I&O - Last 24 hours: Intake & Output 09/05/17 09/06/17 09/06/17 22:59 06:59 14:59 Intake Total 480 200 Output Total 1500 Balance 480 -1300 Lab Results - Last 24 hrs: Laboratory Results - last 24 hr 09/04/17 09/05/17 09/05/17 Range/Units 18:52 11:37 16:47 WBC (4.0-11.0) K/uL RBC (4.30-5.90) M/uL Hgb (12.0-16.0) g/dL Hct (36.0-46.0) % MCV (80.0-98.0) fL MCH (27.0-32.0) pg MCHC (31.0-37.0) g/dL RDW Std Deviation (28.0-62.0) fl RDW Coeff of Sukhdeep (11.0-15.0) % Plt Count (150-400) K/uL MPV (7.40-12.00) fL Neut % (Auto) (48.0-80.0) % Lymph % (Auto) (16.0-40.0) % [place] % (Auto) (0.0-15.0) % Eos % (Auto) (0.0-7.0) % Baso % (Auto) (0.0-1.5) % Neut # (Auto) (1.4-5.7) K/uL Lymph # (Auto) (0.6-2.4) K/uL [place] # (Auto) (0.0-0.8) K/uL Eos # (Auto) (0.0-0.7) K/uL Baso # (Auto) (0.0-0.1) K/uL Nucleated RBC % /100WBC Nucleated RBCs # K/uL Sodium (136-145) mmol/L Potassium (3.5-5.1) mmol/L Chloride (98-107) mmol/L Carbon Dioxide (21.0-32.0) mmol/L BUN (7.0-18.0) mg/dL Creatinine (0.6-1.0) mg/dL Est Cr Clr Drug Dosing mL/min Estimated GFR (MDRD) ml/min Glucose (74-106) mg/dL POC Glucose 111 H 109 (60-110) mg/dL Calcium (8.5-10.1) mg/dL Urine RBC 1-3 (0-2/HPF) Urine WBC 10-15 (0-5/HPF) Ur Epithelial Cells FEW (NONE-FEW) Urine Bacteria FEW (NEGATIVE) 09/06/17 09/06/17 Range/Units 05:40 05:40 WBC 5.79 (4.0-11.0) K/uL RBC 4.26 L (4.30-5.90) M/uL Hgb 13.2 (12.0-16.0) g/dL Hct 40.9 (36.0-46.0) % MCV 96.0 (80.0-98.0) fL MCH 31.0 (27.0-32.0) pg MCHC 32.3 (31.0-37.0) g/dL RDW Std Deviation 45.1 (28.0-62.0) fl RDW Coeff of Sukhdeep 13 (11.0-15.0) % Plt Count 413 H (150-400) K/uL MPV 10.60 (7.40-12.00) fL Neut % (Auto) 71.4 (48.0-80.0) % Lymph % (Auto) 19.2 (16.0-40.0) % [place] % (Auto) 7.3 (0.0-15.0) % Eos % (Auto) 1.4 (0.0-7.0) % Baso % (Auto) 0.7 (0.0-1.5) % Neut # (Auto) 4.1 (1.4-5.7) K/uL Lymph # (Auto) 1.1 (0.6-2.4) K/uL [place] # (Auto) 0.4 (0.0-0.8) K/uL Eos # (Auto) 0.1 (0.0-0.7) K/uL Baso # (Auto) 0.0 (0.0-0.1) K/uL Nucleated RBC % 0.0 /100WBC Nucleated RBCs # 0 K/uL Sodium 144 (136-145) mmol/L Potassium 3.9 (3.5-5.1) mmol/L Chloride 109 H (98-107) mmol/L Carbon Dioxide 28.2 (21.0-32.0) mmol/L BUN 8 (7.0-18.0) mg/dL Creatinine 1.1 H (0.6-1.0) mg/dL Est Cr Clr Drug Dosing 33.46 mL/min Estimated GFR (MDRD) 47.4 ml/min Glucose 121 H (74-106) mg/dL POC Glucose (60-110) mg/dL Calcium 9.1 (8.5-10.1) mg/dL Urine RBC (0-2/HPF) Urine WBC (0-5/HPF) Ur Epithelial Cells (NONE-FEW) Urine Bacteria (NEGATIVE) EMERALD Results - Last 24 hrs: Microbiology 09/04/17 18:52 Urine Culture - Final Urine, Clean Catch MIXED SUNDAY 10,000-100,000 CFU/ML 09/04/17 17:43 Aerobic Blood Culture - Preliminary Blood - Venous - Lab Draw NO GROWTH AFTER 1 DAY Anaerobic Blood Culture - Preliminary NO GROWTH AFTER 1 DAY 09/04/17 17:38 Aerobic Blood Culture - Preliminary Blood - Venous NO GROWTH AFTER 1 DAY Anaerobic Blood Culture - Preliminary NO GROWTH AFTER 1 DAY Med Orders - Current: Current Medications Heparin Sodium (Porcine) (Heparin Sodium) 5,000 units SUBCUT Q12HR [facility] Last Admin: 09/06/17 08:23 Dose: 5,000 units Sodium Chloride (Normal Saline) 500 mls @ 999 mls/hr IV STAT [facility] Last Admin: 09/04/17 17:53 Dose: 999 mls/hr Levofloxacin/Dextrose 750 mg/ (Premix) 150 mls @ 100 mls/hr IV Q48H [facility] Insulin Aspart (Novolog) 0 unit SUBCUT TIDAC [facility]; Protocol Last Admin: 09/06/17 06:44 Dose: Not Given Sodium Chloride (Saline Flush) 10 ml FLUSH ASDIRECTED PRN PRN Reason: Keep Vein Open Sodium Chloride (Saline Flush) 2.5 ml FLUSH ASDIRECTED PRN PRN Reason: Keep Vein Open Discontinued Medications Levofloxacin/Dextrose 750 mg/ (Premix) 150 mls @ 100 mls/hr IV ONETIME ONE Stop: 09/04/17 20:17 Last Admin: 09/04/17 19:15 Dose: 100 mls/hr - Exam Quality Assessment: Reports: DVT Prophylaxis. Denies: Supplemental Oxygen General: Reports: Alert, Oriented, Cooperative, No Acute Distress Neck: Reports: Supple Lungs: Reports: Clear to Auscultation, Normal Respiratory Effort Cardiovascular: Reports: Regular Rate, Regular Rhythm GI/Abdominal Exam: Normal Bowel Sounds, Soft, Non-Tender, No Organomegaly, No Distention, No Abnormal Bruit, No Mass, Pelvis Stable Back Exam: Reports: Normal Inspection, Full Range of Motion Extremities: Normal Inspection, Normal Range of Motion, Non-Tender, No Pedal Edema, Normal Capillary Refill Neurological: Reports: No New Focal Deficit Psy/Mental Status: Reports: Alert, Normal Affect, Normal Mood
[2017-09-06 11:09] VITALS: BP 139/80
[2017-09-06] MEDS ORDERED: Levofloxacin/Dextrose 5%-Water 750 MG in Premix Bag 1 BAG IV SCH (18:00)
== END 2017-09-06 10:45 | disposition home health service (06) | DRG 195 ==
LOC: MW.ED 17:08 → MW.MS 18:49
PROVIDERS: ADMIT Internal Medicine; ATTEND Internal Medicine
DX: J18.9 Pneumonia, unspecified organism (principal); R53.1 Weakness; E78.00 Pure hypercholesterolemia, unspecified; I10 Essential (primary) hypertension; E11.9 Type 2 diabetes mellitus without complications; E78.5 Hyperlipidemia, unspecified; I25.10 Atherosclerotic heart disease of native coronary artery without angina pectoris; Z95.5 Presence of coronary angioplasty implant and graft; Z79.899 Other long term (current) drug therapy
CPT/HCPCS: 36415; 36600; 71046; 80053; 82803; 83605; 83880; 84484; 85025; 85610; 87040 ×2; 87804 ×2; 93005; 99285; J7040; 80048; 81001; 82962; 87086; 96365; 99283; J1644; J1956

== ENCOUNTER 2019-06-29 10:14 | Emergency (ER) | payer MEDICARE, BC ==
--- NOTE | 2019-06-29 10:23 | EDM.PDOC ---
ED HPI GENERAL MEDICAL PROBLEM - General Stated Complaint: POSSIBLE BLADDER INFECTION Time Seen by Provider: 06/29/19 10:17 Source of Information: Reports: Patient History Limitations: Reports: No Limitations - History of Present Illness INITIAL COMMENTS - FREE TEXT/NARRATIVE: HISTORY AND PHYSICAL: History of present illness: patient is an 84-year-old female who presents to the emergency room with complaints of generalized fatigue, lower abdominal/suprapubic pain that radiates into the groin bilaterally. Patient's daughter who is at bedside states she is concerned as she has been complaining of feeling "tired" over the past several weeks, various vague complaints, and then this morning complaining of some lower abdominal pain that radiated into the bilateral groin area. They did attempt to get into their primary care provider but are unable to be seen for approximately one week. She denies any injury, trauma or falls. Patient denies any fever, chills, headache, change in vision, syncope or near syncope. Denies any chest pain, back pain, shortness of breath or cough. Denies any nausea, vomiting, diarrhea, constipation or dysuria. Has not noted any blood in urine or stool. Patient has been eating and drinking appropriately. Review of systems: As per history of present illness and below otherwise all systems reviewed and negative. Past medical history: As per history of present illness and as reviewed below otherwise noncontributory. Surgical history: As per history of present illness and as reviewed below otherwise noncontributory. Social history: See social history for further information Family history: As per history of present illness and as reviewed below otherwise noncontributory. Physical exam: General: Well-developed and well-nourished 84-year-old female. Alert and oriented. Nontoxic appearing and in no acute distress. Family member at bedside. HEENT: Atraumatic, normocephalic, pupils equal and reactive bilaterally, negative for conjunctival pallor or scleral icterus, mucous membranes moist, TMs normal bilaterally, throat clear, neck supple, nontender, trachea midline. No drooling or trismus noted. No meningeal signs. No hot potato voice noted. Lungs: Clear to auscultation, breath sounds equal bilaterally, chest nontender. Heart: S1S2, regular rate and rhythm without overt murmur Abdomen: Soft, nondistended, nontender. Negative for masses or hepatosplenomegaly. Negative for costovertebral tenderness. Pelvis: Stable nontender. Skin: Intact, warm, dry. No lesions or rashes noted. Extremities: Atraumatic, moves all extremities per self without difficulty or deficits, negative for cords or calf pain. denies any numbness, tingling or saddle paresthesia. Denies any weakness to the distal extremities.Neurovascular unremarkable. Neuro: Awake, alert, oriented. Cranial nerves II through XII unremarkable. Cerebellum unremarkable. Motor and sensory unremarkable throughout. Exam nonfocal. Notes: I inspected the patients groin and skin of her lower extremities; WNL. +CMS bilateral LE. Lab work and CXR are unremarkable, with exception of UTI. EKG shows sinus rhythm with rate of 81. Will give dose of abx while here for the UTI. Medication and supportive care measures were reviewed and discussed. Voices understanding and is agreeable to plan of care. Denies any further questions or concerns at this time. Diagnostics: CBC, CMP, Troponin, EKG, CXR, UA Therapeutics: Rocephin Prescription: Augmentin 500mg BID x 7 days Impression: UTI Plan: 1. Increase your oral fluids. Take the antibiotic as directed. 2. Tylenol and/or Ibuprofen as needed for pain/fever management. 3. Please follow up with Dr Dc next week as we discussed. Return to the ED as needed as discussed. Definitive disposition and diagnosis as appropriate pending reevaluation and review of above. 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 History: Reports: Musculoskeletal History: Reports: None Neurological History: Reports: None Psychiatric History: Reports: None Endocrine/Metabolic History: Reports: Diabetes, Type II Hematologic History: Reports: None Immunologic History: Reports: None Oncologic (Cancer) History: Reports: None - Infectious Disease History Infectious Disease History: Reports: Chicken Pox, Measles, Mumps - Past Surgical History Cardiovascular Surgical History: Reports: Coronary Artery Stent, Other (See Below) Dermatological Surgical History: Reports: None Social & Family History - Family History Family Medical History: Noncontributory - Caffeine Use Caffeine Use: Reports: Coffee - Living Situation & Occupation Living situation: Reports: , with Family Occupation: Retired ED ROS GENERAL - Review of Systems Review Of Systems: Comprehensive ROS is negative, except as noted in HPI. ED EXAM, RENAL/ - Physical Exam Exam: See Below (See dictation) Course - Vital Signs Last Recorded V/S: Last Vital Signs Temp 97.1 F 06/29/19 10:25 Pulse 107 H 06/29/19 10:25 Resp 16 06/29/19 10:25 BP 145/73 H 06/29/19 11:20 Pulse Ox 95 06/29/19 10:25 - Orders/Labs/Meds Orders: Active Orders 24 hr Category Date Time Status EKG Documentation Completion [RC] STAT Care 06/29/19 10:28 Active CULTURE URINE [RM] Stat Lab 06/29/19 10:28 Received [email or web address] [Rocephin in Dextrose,Iso-Osm 1 GM/50 ML] 1 Med 06/29/19 11:09 Active gm Premix Bag 1 bag IV ONETIME Medication Orders Ceftriaxone Sodium/Dextrose 1 (gm/ Premix) 50 mls @ 100 mls/hr IV ONETIME ONE Stop: 06/29/19 11:38 Last Admin: 06/29/19 11:17 Dose: 100 mls/hr Labs: Laboratory Tests 06/29/19 06/29/19 06/29/19 Range/Units 10:28 10:32 10:32 WBC 5.73 (4.0-11.0) K/uL RBC 5.32 (4.30-5.90) M/uL Hgb 17.2 H (12.0-16.0) g/dL Hct 50.8 H (36.0-46.0) % MCV 95.5 (80.0-98.0) fL MCH 32.3 H (27.0-32.0) pg MCHC 33.9 (31.0-37.0) g/dL RDW Std Deviation 44.6 (28.0-62.0) fl RDW Coeff of Sukhdeep 13 (11.0-15.0) % Plt Count 251 (150-400) K/uL MPV 11.20 (7.40-12.00) fL Neut % (Auto) 74.5 (48.0-80.0) % Lymph % (Auto) 17.8 (16.0-40.0) % [place] % (Auto) 6.5 (0.0-15.0) % Eos % (Auto) 0.9 (0.0-7.0) % Baso % (Auto) 0.3 (0.0-1.5) % Neut # (Auto) 4.3 (1.4-5.7) K/uL Lymph # (Auto) 1.0 (0.6-2.4) K/uL Victoria # (Auto) 0.4 (0.0-0.8) K/uL Eos # (Auto) 0.1 (0.0-0.7) K/uL Baso # (Auto) 0.0 (0.0-0.1) K/uL Nucleated RBC % 0.0 /100WBC Nucleated RBCs # 0 K/uL Sodium 139 (136-145) mmol/L Potassium 3.8 (3.5-5.1) mmol/L Chloride 102 (98-107) mmol/L Carbon Dioxide 27.7 (21.0-32.0) mmol/L BUN 14 (7.0-18.0) mg/dL Creatinine 1.4 H (0.6-1.0) mg/dL Est Cr Clr Drug Dosing TNP Estimated GFR (MDRD) 35.7 ml/min Glucose 160 H (74-106) mg/dL Calcium 9.6 (8.5-10.1) mg/dL Total Bilirubin 0.6 (0.2-1.0) mg/dL AST 14 L (15-37) IU/L ALT 18 (14-63) IU/L Alkaline Phosphatase 97 (46-116) U/L Troponin I < 0.050 (0.000-0.056) ng/mL Total Protein 7.9 (6.4-8.2) g/dL Albumin 4.2 (3.4-5.0) g/dL Globulin 3.7 (2.6-4.0) g/dL Albumin/Globulin Ratio 1.1 (0.9-1.6) Urine Color YELLOW Urine Appearance CLEAR Urine pH 6.0 (5.0-8.0) Ur Specific [place] >= 1.030 (1.001-1.035) Urine Protein 100 H (NEGATIVE) mg/dL Urine Glucose (UA) NEGATIVE (NEGATIVE) mg/dL Urine Ketones NEGATIVE (NEGATIVE) mg/dL Urine Occult Blood NEGATIVE (NEGATIVE) Urine Nitrite NEGATIVE (NEGATIVE) Urine Bilirubin NEGATIVE (NEGATIVE) Urine Urobilinogen 0.2 (<2.0) EU/dL Ur Leukocyte Esterase SMALL H (NEGATIVE) Urine RBC 0-2 (0-2/HPF) Urine WBC 5-8 (0-5/HPF) Ur Epithelial Cells MODERATE (NONE-FEW) Urine Bacteria FEW (NEGATIVE) Meds: Medications Generic Name Dose Route Start Last Admin Trade Name Freq PRN Reason Stop Dose Admin Ceftriaxone Sodium/Dextrose 1 50 mls @ 100 mls/hr 06/29/19 11:09 06/29/19 11: 17 gm/ Premix IV 06/29/19 11:38 100 mls/hr ONETIME ONE Administration Departure - Departure Time of Disposition: 11:35 Disposition: Home, Self-Care 01 Clinical Impression: UTI, Urinary tract infectious disease - Discharge Information Instructions: Urinary Tract Infection, Adult, [id number] Referrals: Jorge Tyson MD [Primary Care Provider] - Additional Instructions: The following information is given to patients seen in the emergency department who are being discharged to home. This information is to outline your options for follow-up care. We provide all patients seen in our emergency department with a follow-up referral. The need for follow-up, as well as the timing and circumstances, are variable depending upon the specifics of your emergency department visit. If you don't have a primary care physician on staff, we will provide you with a referral. We always advise you to contact your personal physician following an emergency department visit to inform them of the circumstance of the visit and for follow-up with them and/or the need for any referrals to a consulting specialist. The emergency department will also refer you to a specialist when appropriate. This referral assures that you have the opportunity for follow-up care with a specialist. All of these measure are taken in an effort to provide you with optimal care, which includes your follow-up. Under all circumstances we always encourage you to contact your private physician who remains a resource for coordinating your care. When calling for follow-up care, please make the office aware that this follow-up is from your recent emergency room visit. If for any reason you are refused follow-up, please contact the [facility] Emergency Department at and asked to speak to the emergency department charge nurse. [facility] [address] [place] [id number] [facility] [address] [place] [id number] 1. Increase your oral fluids. Take the antibiotic as directed. 2. Tylenol and/or Ibuprofen as needed for pain/fever management. 3. Please follow up with Dr Dc next week as we discussed. Return to the ED as needed as discussed. Sepsis Event Note - Focused Exam Vital Signs: Vital Signs Temp Pulse Resp BP Pulse Ox 06/29/19 11:20 145/73 H 06/29/19 10:25 97.1 F 107 H 16 181/101 H 95 Date Exam was Performed: 06/29/19 Time Exam was Performed: 11:34 - My Orders Last 24 Hours: My Active Orders 06/29/19 10:28 EKG Documentation Completion [RC] STAT CULTURE URINE [RM] Stat 06/29/19 11:09 cefTRIAXone [Rocephin in Dextrose,Iso-Osm 1 GM/50 ML] 1 gm Premix Bag 1 bag IV ONETIME - Assessment/Plan Last 24 Hours: My Active Orders 06/29/19 10:28 EKG Documentation Completion [RC] STAT CULTURE URINE [RM] Stat 06/29/19 11:09 cefTRIAXone [Rocephin in Dextrose,Iso-Osm 1 GM/50 ML] 1 gm Premix Bag 1 bag IV ONETIME
[2019-06-29 11:05] LABS: BLOOD UREA NITROGEN,BUN 14 mg/dL (7.0-18.0); CARBON DIOXIDE,CO2 27.7 mmol/L (21.0-32.0); CHLORIDE,CL 102 mmol/L (98-107); GLUCOSE RANDOM 160 mg/dL (74-106); POTASSIUM,K 3.8 mmol/L (3.5-5.1); SODIUM,NA 139 mmol/L (136-145)
[2019-06-29] MEDS ORDERED: cefTRIAXone 1 GM in Premix Bag 1 BAG IV ONE (11:09)
--- NOTE | 2019-06-29 11:30 | CR ---
Chest: Portable view of the chest was obtained. Comparison: Prior chest x-ray of 09/04/17. Slight scarring is noted within the right upper chest. Lungs otherwise are clear but somewhat hyperinflated. Heart size and mediastinum are normal. Bony structures are grossly intact. Impression: 1. Findings as noted above. 2. Nothing acute is appreciated. Diagnostic code #2 This report was dictated in [place] Standard Time
[2019-06-29 11:55] VITALS: BP 171/74; PULSE 77
== END 2019-06-29 11:50 | disposition home or self-care (01) ==
LOC: MW.ED 10:14
DX: N39.0 Urinary tract infection, site not specified (principal); I10 Essential (primary) hypertension; E78.00 Pure hypercholesterolemia, unspecified; E11.9 Type 2 diabetes mellitus without complications; Z79.899 Other long term (current) drug therapy
CPT/HCPCS: 36415; 71045; 80053; 81001; 84484; 85025; 87086; 93005; 96365; 99284; J0696; 99283

== ENCOUNTER 2020-04-09 10:59 | Emergency (ER) | payer MEDICARE, BC ==
[2020-04-09 12:16] VITALS: BP 132/56; PULSE 56
--- NOTE | 2020-04-09 12:37 | US ---
INDICATION: Leg pain and swelling TECHNIQUE: Ultrasound venous duplex lower left extremity. Compression venous exam was performed using crowell-scale, color Doppler, and spectral Doppler analysis. COMPARISON: None. FINDINGS: Sonographic imaging demonstrates the left common femoral, deep femoral, superficial femoral, popliteal, posterior tibial and greater saphenous and the contralateral right common femoral veins to be fully compressible with normal color Doppler blood flow. IMPRESSION: Normal left lower extremity venous ultrasound, no sign of deep venous thrombosis. Dictated by John Dotson MD @ Apr 09 2020 12:26PM Signed by Dr. John Dotson @ Apr 09 2020 12:35PM
--- NOTE | 2020-04-09 13:11 | EDM.PDOC ---
ED HPI GENERAL MEDICAL PROBLEM - General Chief Complaint: Lower Extremity Injury/Pain Stated Complaint: POSSIBLE BLOOD CLOT LEFT LEG Time Seen by Provider: 04/09/20 12:51 Source of Information: Reports: Patient History Limitations: Reports: No Limitations - History of Present Illness INITIAL COMMENTS - FREE TEXT/NARRATIVE: HISTORY AND PHYSICAL: History of present illness: Patient is a 85 year old female who presents to the ED with c/o left lower extremity pain. She states over the past 1 week she has had pain to the left posterior calf and the left lower extremity when weightbearing and ambulating. She states she has been concerned that she could have a blood clot as she does not recall any injury or trauma. Patient denies any fever, chills, headache, change in vision, syncope or near syncope. Denies any chest pain, back pain, shortness of breath or cough. Denies any abdominal pain, nausea, vomiting, diarrhea, constipation or dysuria. Has not noted any blood in urine or stool. Patient has been eating and drinking appropriately. Review of systems: As per history of present illness and below otherwise all systems reviewed and negative. Past medical history: As per history of present illness and as reviewed below otherwise noncontributory. Surgical history: As per history of present illness and as reviewed below otherwise noncontributory. Social history: See social history for further information Family history: As per history of present illness and as reviewed below otherwise noncontributory. Physical exam: General: Well developed and well nourished. Alert and orientated x 3. Nontoxic in appearance and in no acute distress. Vital signs are stable and have been reviewed by me. Nursing notes were reviewed. HEENT: Atraumatic, normocephalic, pupils equal and reactive bilaterally, negative for conjunctival pallor or scleral icterus, mucous membranes moist, TMs normal bilaterally, throat clear, neck supple, nontender, trachea midline. No d rooling or trismus noted. No meningeal signs. No hot potato voice noted. Lungs: Clear to auscultation, breath sounds equal bilaterally, chest nontender. Normal work of breathing, no accessory muscles used. Heart: S1S2, regular rate and rhythm without overt murmur Abdomen: Soft, nondistended, nontender. Negative for masses or hepatosplenomegaly. Negative for costovertebral tenderness. Pelvis: Stable nontender. Skin: Intact, warm, dry. No lesions or rashes noted. Hematologic: No petechiae or purpra. Mucosa appropriate color and normal nail bed color and refill. Extremities: Atraumatic, moves all extremities per self without difficulty or deficits, negative for cords or calf pain. Neurovascular unremarkable. Neuro: Awake, alert, oriented. Cranial nerves II through XII unremarkable. Cerebellum unremarkable. Motor and sensory unremarkable throughout. Exam nonfocal. Psychiatric: Mood and affect are appropriate. Normal thought process. Answering questions appropriately. Notes: Normal left lower extremity venous ultrasound, no sign of deep venous thrombosis. Basic lab work and x-ray are pending. The daughter who is with the patient asks for a UA to be checked as she had complained of some suprapubic tenderness/fullness. Lab work is unremarkable. She did find improvement with the Lidoderm patch. She does have a UTI, will treat with Macrobid. We did discuss the need for follow-up with an orthopedic provider if she continues to have lower extremity pain, at this time I do not feel it is vascular if she has strong pedal and pretibial pulses, good sensation and strength of the lower extremity. X-ray and ultrasound are unremarkable. I have talked with the patient about today's findings, in addition to providing specific details for plan of care. Reassessment at the time of disposition demonstrates that the patient is in no acute distress. The patient is stable for discharge, counseling was provided and we discussed in great detail signs and symptoms that would prompt them to return to the Emergency Department. Medication, follow up and supportive care measures were reviewed and discussed. Voices understanding and is agreeable to plan of care. Denies any further questions or concerns at this time. Diagnostics: CBC, CMP, UA, U/S LE Therapeutics: Macrobid, Lidoderm Prescription: Macrobid Impression: Left left pain UTI Plan: 1. Today your ultrasound and x-ray of your left leg are within normal limits. The pain could be pulled muscle or arthritic. Apply gentle heat and/or ice (your preference) for comfort. 2. You can alternate Tylenol and ibuprofen as needed for pain. 3. Your oral fluids. You do have a bladder infection. Take the antibiotic as prescribed. 4. We encourage you to follow up with your primary care provider and/or the Orthopedist in the next few days for re-evaluation and further care/management. 5. If your symptoms should worsen, new symptoms develop or any of the signs and symptoms we discussed should arise please return to the emergency room or call 911 (if needed). Definitive disposition and diagnosis as appropriate pending reevaluation and review of above. 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: Musculoskeletal History: Reports: None Neurological History: Reports: None Psychiatric History: Reports: None Endocrine/Metabolic History: Reports: Diabetes, Type II Hematologic History: Reports: None Immunologic History: Reports: None Oncologic (Cancer) History: Reports: None Dermatologic History: Reports: None - Infectious Disease History Infectious Disease History: Reports: Chicken Pox, Measles, Mumps - Past Surgical History Head Surgeries/Procedures: Reports: None HEENT Surgical History: Reports: None Cardiovascular Surgical History: Reports: Coronary Artery Stent, Other (See Below) Other Cardiovascular Surgeries/Procedures: stents x2 Respiratory Surgical History: Reports: None GI Surgical History: Reports: None Female Surgical History: Reports: None Endocrine Surgical History: Reports: None Neurological Surgical History: Reports: None Musculoskeletal Surgical History: Reports: None Oncologic Surgical History: Reports: None Dermatological Surgical History: Reports: None Social & Family History - Family History Family Medical History: No Pertinent Family History - Tobacco Use Tobacco Use Status *Q: Never Tobacco User - Caffeine Use Caffeine Use: Reports: Coffee - Recreational Drug Use Recreational Drug Use: No - Living Situation & Occupation Living situation: Reports: , with Family Occupation: Retired Review of Systems - Review of Systems Review Of Systems: Comprehensive ROS is negative, except as noted in HPI. ED EXAM, GENERAL - Physical Exam Exam: See Below (See dictation) Course - Vital Signs Last Recorded V/S: Last Vital Signs Temp 97.5 F 04/09/20 12:14 Pulse 56 L 04/09/20 12:14 Resp 18 04/09/20 12:14 BP 132/56 L 04/09/20 12:14 Pulse Ox 96 04/09/20 12:14 - Orders/Labs/Meds Orders: Active Orders 24 hr Category Date Time Status CULTURE URINE [RM] Stat Lab 04/09/20 13:45 Received Labs: Laboratory Tests 04/09/20 04/09/20 04/09/20 Range/Units 13:00 13:00 13:00 WBC 8.17 (4.0-11.0) K/uL RBC 5.16 (4.30-5.90) M/uL Hgb 16.2 H (12.0-16.0) g/dL Hct 50.4 H (36.0-46.0) % MCV 97.7 (80.0-98.0) fL MCH 31.4 (27.0-32.0) pg MCHC 32.1 (31.0-37.0) g/dL RDW Std Deviation 45.3 (28.0-62.0) fl RDW Coeff of Sukhdeep 13 (11.0-15.0) % Plt Count 244 (150-400) K/uL MPV 11.20 (7.40-12.00) fL Neut % (Auto) 80.7 H (48.0-80.0) % Lymph % (Auto) 13.1 L (16.0-40.0) % Jennings % (Auto) 5.5 (0.0-15.0) % Eos % (Auto) 0.5 (0.0-7.0) % Baso % (Auto) 0.2 (0.0-1.5) % Neut # (Auto) 6.6 H (1.4-5.7) K/uL Lymph # (Auto) 1.1 (0.6-2.4) K/uL Jennings # (Auto) 0.5 (0.0-0.8) K/uL Eos # (Auto) 0.0 (0.0-0.7) K/uL Baso # (Auto) 0.0 (0.0-0.1) K/uL Nucleated RBC % 0.0 /100WBC Nucleated RBCs # 0 K/uL INR 1.00 Sodium 143 (136-145) mmol/L Potassium 4.8 (3.5-5.1) mmol/L Chloride 105 (98-107) mmol/L Carbon Dioxide 29.3 (21.0-32.0) mmol/L BUN 15 (7.0-18.0) mg/dL Creatinine 1.2 H (0.6-1.0) mg/dL Est Cr Clr Drug Dosing 28.92 mL/min Estimated GFR (MDRD) 42.6 ml/min Glucose 120 H (74-106) mg/dL Calcium 9.5 (8.5-10.1) mg/dL Total Bilirubin 0.8 (0.2-1.0) mg/dL AST 11 L (15-37) IU/L ALT 16 (14-63) IU/L Alkaline Phosphatase 93 (46-116) U/L Total Protein 7.3 (6.4-8.2) g/dL Albumin 4.0 (3.4-5.0) g/dL Globulin 3.3 (2.6-4.0) g/dL Albumin/Globulin Ratio 1.2 (0.9-1.6) Urine Color Urine Appearance Urine pH (5.0-8.0) Ur Specific [place] (1.001-1.035) Urine Protein (NEGATIVE) mg/dL Urine Glucose (UA) (NEGATIVE) mg/dL Urine Ketones (NEGATIVE) mg/dL Urine Occult Blood (NEGATIVE) Urine Nitrite (NEGATIVE) Urine Bilirubin (NEGATIVE) Urine Urobilinogen (<2.0) EU/dL Ur Leukocyte Esterase (NEGATIVE) Urine RBC (0-2/HPF) Urine WBC (0-5/HPF) Ur Epithelial Cells (NONE-FEW) Urine Bacteria (NEGATIVE) 04/09/20 Range/Units 13:45 WBC (4.0-11.0) K/uL RBC (4.30-5.90) M/uL Hgb (12.0-16.0) g/dL Hct (36.0-46.0) % MCV (80.0-98.0) fL MCH (27.0-32.0) pg MCHC (31.0-37.0) g/dL RDW Std Deviation (28.0-62.0) fl RDW Coeff of Sukhdeep (11.0-15.0) % Plt Count (150-400) K/uL MPV (7.40-12.00) fL Neut % (Auto) (48.0-80.0) % Lymph % (Auto) (16.0-40.0) % [place] % (Auto) (0.0-15.0) % Eos % (Auto) (0.0-7.0) % Baso % (Auto) (0.0-1.5) % Neut # (Auto) (1.4-5.7) K/uL Lymph # (Auto) (0.6-2.4) K/uL [place] # (Auto) (0.0-0.8) K/uL Eos # (Auto) (0.0-0.7) K/uL Baso # (Auto) (0.0-0.1) K/uL Nucleated RBC % /100WBC Nucleated RBCs # K/uL INR Sodium (136-145) mmol/L Potassium (3.5-5.1) mmol/L Chloride (98-107) mmol/L Carbon Dioxide (21.0-32.0) mmol/L BUN (7.0-18.0) mg/dL Creatinine (0.6-1.0) mg/dL Est Cr Clr Drug Dosing mL/min Estimated GFR (MDRD) ml/min Glucose (74-106) mg/dL Calcium (8.5-10.1) mg/dL Total Bilirubin (0.2-1.0) mg/dL AST (15-37) IU/L ALT (14-63) IU/L Alkaline Phosphatase (46-116) U/L Total Protein (6.4-8.2) g/dL Albumin (3.4-5.0) g/dL Globulin (2.6-4.0) g/dL Albumin/Globulin Ratio (0.9-1.6) Urine Color YELLOW Urine Appearance HAZY Urine pH 5.5 (5.0-8.0) Ur Specific [place] 1.025 (1.001-1.035) Urine Protein NEGATIVE (NEGATIVE) mg/dL Urine Glucose (UA) NEGATIVE (NEGATIVE) mg/dL Urine Ketones NEGATIVE (NEGATIVE) mg/dL Urine Occult Blood TRACE-INTACT H (NEGATIVE) Urine Nitrite NEGATIVE (NEGATIVE) Urine Bilirubin NEGATIVE (NEGATIVE) Urine Urobilinogen 0.2 (<2.0) EU/dL Ur Leukocyte Esterase MODERATE H (NEGATIVE) Urine RBC 1-3 (0-2/HPF) Urine WBC 3-6 (0-5/HPF) Ur Epithelial Cells FEW (NONE-FEW) Urine Bacteria 1+ H (NEGATIVE) Meds: Medications Discontinued Medications Generic Name Dose Route Start Last Admin Trade Name Freq PRN Reason Stop Dose Admin Lidocaine 700 mg 04/09/20 14:07 Lidoderm 5% TOP 04/09/20 14:08 ONETIME ONE Nitrofurantoin Macrocrystals 100 mg 04/09/20 14:07 Macrobid PO 04/09/20 14:08 ONETIME ONE Departure - Departure Time of Disposition: 14:11 Disposition: Home, Self-Care 01 Clinical Impression: Lower extremity pain, left UTI (urinary tract infection) Qualifiers: Urinary tract infection type: site unspecified Hematuria presence: without hematuria Qualified Code(s): N39.0 - Urinary tract infection, site not specified - Discharge Information Referrals: Jorge Tyson MD [Primary Care Provider] - Forms: ED Department Discharge Additional Instructions: The following information is given to patients seen in the emergency department who are being discharged to home. This information is to outline your options for follow-up care. We provide all patients seen in our emergency department with a follow-up referral. The need for follow-up, as well as the timing and circumstances, are variable depending upon the specifics of your emergency department visit. If you don't have a primary care physician on staff, we will provide you with a referral. We always advise you to contact your personal physician following an emergency department visit to inform them of the circumstance of the visit and for follow-up with them and/or the need for any referrals to a consulting specialist. The emergency department will also refer you to a specialist when appropriate. This referral assures that you have the opportunity for follow-up care with a specialist. All of these measure are taken in an effort to provide you with optimal care, which includes your follow-up. Under all circumstances we always encourage you to contact your private physician who remains a resource for coordinating your care. When calling for follow-up care, please make the office aware that this follow-up is from your recent emergency room visit. If for any reason you are refused follow-up, please contact the [facility] Emergency Department at and asked to speak to the emergency department charge nurse. [facility] [address] [place] [address] [facility] [address] [place] [address] Thank you for choosing the [facility] emergency department in [place] for your medical needs today. It was a pleasure caring for you. Today you were seen in the emergency department for leg pain and UTI. 1. Today your ultrasound and x-ray of your left leg are within normal limits. The pain could be pulled muscle or arthritic. Apply gentle heat and/or ice (your preference) for comfort. 2. You can alternate Tylenol and ibuprofen as needed for pain. 3. Your oral fluids. You do have a bladder infection. Take the antibiotic as prescribed. 4. We encourage you to follow up with your primary care provider and/or the Orthopedist in the next few days for re-evaluation and further care/management. 5. If your symptoms should worsen, new symptoms develop or any of the signs and symptoms we discussed should arise please return to the emergency room or call 911 (if needed). Sepsis Event Note (ED) - Evaluation Sepsis Screening Result: No Definite Risk - Focused Exam Vital Signs: Vital Signs Temp Pulse Resp BP Pulse Ox 04/09/20 12:14 97.5 F 56 L 18 132/56 L 96 - My Orders Last 24 Hours: My Active Orders 04/09/20 13:45 CULTURE URINE [RM] Stat - Assessment/Plan Last 24 Hours: My Active Orders 04/09/20 13:45 CULTURE URINE [RM] Stat
[2020-04-09 13:33] LABS: CARBON DIOXIDE,CO2 29.3 mmol/L (21.0-32.0); POTASSIUM,K 4.8 mmol/L (3.5-5.1)
[2020-04-09] MEDS ORDERED: Lidocaine 5% 700 MG Patch TOP ONE (14:07)
[2020-04-09] MEDS ORDERED: Nitrofurantoin Monohydrate/Macrocrystalline 100 MG Cap PO ONE (14:07)
--- NOTE | 2020-04-09 14:13 | CR ---
Indication: Pain Comparison: None available. Technique: AP amd lateral views left tibia and fibula were obtained Findings: There is no displaced fracture or dislocation. The joint spaces are grossly preserved. The soft tissues are unremarkable. Impression: No acute osseus abnormality. Dictated by John Dotson MD @ Apr 09 2020 2:11PM Signed by Dr. John Dotson @ Apr 09 2020 2:12PM
== END 2020-04-09 14:47 | disposition home or self-care (01) ==
LOC: MW.ED 10:59
DX: M79.605 Pain in left leg (principal); N39.0 Urinary tract infection, site not specified; E78.00 Pure hypercholesterolemia, unspecified; I10 Essential (primary) hypertension; E11.9 Type 2 diabetes mellitus without complications; Z79.899 Other long term (current) drug therapy
CPT/HCPCS: 36415; 73590; 80053; 81001; 85025; 85610; 87086; 93971; 99284; A9270